=== PATIENT | female | born 1985 | race African-American/Black ===

== ENCOUNTER 2017-04-23 12:44 | Emergency (ER) | payer OTHER ==
[~2017-04-23] VITALS: Ht 172.7 cm; Wt 83.5 kg
[2017-04-23 12:47] VITALS: Ht 172.7 cm; Wt 83.5 kg
[2017-04-23] MEDS ORDERED: SOD CHLORIDE 0.9% 1,000 ML IV STA (13:17)
[2017-04-23] MEDS ORDERED: METOCLOPRAMIDE 10 MG INJ IV ONE (13:30)
--- NOTE | 2017-04-23 13:38 | ERA ---
ER Documentation Chief Complaint Date/Time DATE: 04/23/17 TIME: 13:36 Chief Complaint sent by OB for vaginal bleeding, pelvic pain and N/V HPI 31-year-old female 18 weeks who was sent here by [facility]. Patient is experiencing lower abdominal pain 2 days, decrease in quickening 4 days , hyperemesis gravidarum 15 weeks, and decreased weight. Patient has been taking Zofran without relief of symptoms. Patient denies any previous medical conditions or medications outside of vitamins and Zofran. Denies bleeding, fever, dysuria, diarrhea, vaginal discharge, foul odor, or identifiable patterns of symptoms. No other complaints and describes no other associated manifestations. ROS All systems reviewed and are negative except as per history of present illness. Medications Home Meds Active Scripts Nitrofurantoin Monohyd Macrocr* (Macrobid*) 100 Mg Capsr, 100 MG PO HS for 7 Days, CAP Prov:SHERIE WASHINGTON PA-C 04/23/17 Allergies Allergies: Coded Allergies: No Known Allergy (Unverified , 04/23/17) PMhx/Soc History of Surgery: No Anesthesia Reaction: No Hx Neurological Disorder: No Hx Respiratory Disorders: No Hx Cardiac Disorders: No Hx Psychiatric Problems: No Hx Miscellaneous Medical Probl: No Hx Alcohol Use: No Hx Substance Use: No Hx Tobacco Use: No Smoking Status: Former smoker Physical Exam Vitals Vital Signs Date Time Temp Pulse Resp B/P Pulse Ox O2 Delivery O2 Flow Rate FiO2 04/23/17 12:47 98.5 80 18 116/70 99 Physical Exam Const: [] Head: Atraumatic Eyes: Normal Conjunctiva ENT: Normal External Ears, Nose and Mouth. Neck: Full range of motion..~ No meningismus. Resp: Clear to auscultation bilaterally Cardio: Regular rate and rhythm, no murmurs Abd: Soft, non tender, non distended. Normal bowel sounds Skin: No petechiae or rashes Back: No midline or flank tenderness Ext: No cyanosis, or edema Neur: Awake and alert Psych: Normal Mood and Affect Result Diagram: 04/23/17 1335 Results 24 hrs Laboratory Tests Test 04/23/17 13:35 White Blood Count 9.410^3/ul Red Blood Count 3.7910^6/ul Hemoglobin 11.5g/dl Hematocrit 34.2% Mean Corpuscular Volume 90.2fl Mean Corpuscular Hemoglobin 30.3pg Mean Corpuscular Hemoglobin Concent 33.6g/dl Red Cell Distribution Width 12.4% Platelet Count 73843^3/UL Mean Platelet Volume 11.1fl Neutrophils % 66.9% Lymphocytes % 23.8% Monocytes % 6.9% Eosinophils % 1.7% Basophils % 0.3% Nucleated Red Blood Cells % 0.0/100WBC Neutrophils # 6.310^3/ul Lymphocytes # 2.210^3/ul Monocytes # 0.710^3/ul Eosinophils # 0.210^3/ul Basophils # 0.010^3/ul Nucleated Red Blood Cells # 0.010^3/ul Urine Color YELLOW Urine Clarity SLIGHTLY CLOUDY Urine pH 7.0 Urine Specific [place] 1.018 Urine Ketones NEGATIVEmg/dL Urine Nitrite NEGATIVEmg/dL Urine Bilirubin NEGATIVEmg/dL Urine Urobilinogen 1+mg/dL Urine Leukocyte Esterase 2+Jairo/ul Urine Microscopic RBC 1/HPF Urine Microscopic WBC 2/HPF Urine Squamous Epithelial Cells FEW/HPF Urine Bacteria FEW/HPF Urine Hemoglobin NEGATIVEmg/dL Urine Glucose NEGATIVEmg/dL Urine Total Protein NEGATIVEmg/dl Beta HCG, Quantitative 37092.0mIU/ml Current Medications Medications (Trade) Dose Ordered Sig/Jeanie Route PRN Reason Start Time Stop Time Status Last Admin Dose Admin Sodium Chloride (NS) 1,000 ml @ 1,000 mls/hr Q1H STAT IV 04/23/17 13:17 04/23/17 14:16 DC 04/23/17 13:40 Metoclopramide HCl (Reglan) 5 mg ONCE ONCE IV 04/23/17 13:30 04/23/17 13:31 DC 04/23/17 13:41 Procedures/MDM 31-year-old female 18 weeks with a chief complaint of lower abdominal pain. No bleeding. Ultrasound obtained read by the radiologist given the following impression: Single viable intrauterine gestation of approximately 18 weeks, 4 days . The estimated date of delivery is 09/20/2017 . Dating by ultrasound is within 1 day of dating by LMP. Posterior placenta with a complete placenta previa. CBC, BMP, and hCG were all within normal limits. Urinalysis showed 2+ leukocyte esterase, and results were most consistent with urinary tract infection. At this time, I have little suspicion for complete , ectopic , infection outside of urinary tract, pyelonephritis, blood vessel rupture, or PPROM. The current most likely diagnosis is lower urinary tract infection. However, at this time I am unable to rule out demise, or complete/missed . I have spoke with the patient regarding their condition and future management. They have verbally responded that they understand their status and treatment plan. Patient will be treated with outpatient Macrobid. The patient s vitals are stable, and their current condition is appropriate for discharge. The patient will be given discharge instructions with return precautions. Results of today's visit have been given to patient. Discharge medications: Macrobid Departure Diagnosis: Primary Impression: Pelvic pain during Additional Impressions: Placenta previa Qualified Code: O44.02 - Placenta previa, second trimester Urinary tract infection during Qualified Code: O23.42 - Urinary tract infection during , second trimester Condition: Stable Additional Instructions: Follow-up with [facility] in the next 1-3 days. Return to emergency department if symptoms change or worsen. Take medications as discussed. SHERIE WASHINGTON PA-C Apr 23, 2017 13:38
[2017-04-23 13:51] LABS: ADD UMIC YES; BASOPHILS % 0.3 % (0.0-2.0); EOSINOPHILS # 0.2 10^3/ul (0.0-0.5); EOSINOPHILS % 1.7 % (0.0-7.0); HEMATOCRIT 34.2 % (37.0-47.0); HEMOGLOBIN 11.5 g/dl (12.0-16.0); LYMPHOCYTES # 2.2 10^3/ul (0.8-2.9); LYMPHOCYTES % 23.8 % (15.0-51.0); MEAN CORPUSCULAR HEMOGLOBIN 30.3 pg (29.0-33.0); MEAN CORPUSCULAR HGB CONC 33.6 g/dl (32.0-37.0); MEAN CORPUSCULAR VOLUME 90.2 fl (82.0-101.0); MEAN PLATELET VOLUME 11.1 fl (7.4-10.4); MONOCYTE # 0.7 10^3/ul (0.3-0.9); MONOCYTES % 6.9 % (0.0-11.0); NEUTROPHIL # 6.3 10^3/ul (1.6-7.5); NEUTROPHILS % 66.9 % (39.0-77.0); PLATELET COUNT 180 10^3/UL (140-415); RED BLOOD COUNT 3.79 10^6/ul (4.20-5.40); RED CELL DISTRIBUTION WIDTH 12.4 % (11.5-14.5); UR ASCORBIC ACID NEGATIVE (NEGATIVE); UR BACTERIA FEW /HPF (NONE SEEN); UR BILIRUBIN (Dip) NEGATIVE (NEGATIVE); UR BLOOD (Dip) NEGATIVE (NEGATIVE); UR CLARITY SLIGHTLY CLOUDY (CLEAR); UR COLOR YELLOW (YELLOW); UR GLUCOSE (Dip) NEGATIVE (NEGATIVE); UR KETONES (Dip) NEGATIVE (NEGATIVE); UR LEUKOCYTE ESTERASE (Dip) 2+ Leu/ul (NEGATIVE); UR NITRITE (Dip) NEGATIVE (NEGATIVE); UR RBC 1 /HPF (0-5); UR SPECIFIC GRAVITY (Dip) 1.018 (1.003-1.030); UR SQUAMOUS EPITHELIAL CELL FEW /HPF (FEW); UR TOTAL PROTEIN (Dip) NEGATIVE (NEGATIVE); UR UROBILINOGEN (Dip) 1+ mg/dL (NEGATIVE); WHITE BLOOD COUNT 9.4 10^3/ul (4.8-10.8)
--- NOTE | 2017-04-23 14:09 | RADRPT ---
PROCEDURE: Obstetrical ultrasound CLINICAL INDICATION: Pain TECHNIQUE: Multiple sonographic images of the pelvis were obtained. The images were reviewed on a PACS workstation. COMPARISON: None FINDINGS: The cervix is closed with a length of 3.6 cm. There is a single viable intrauterine gestation. Cardiac activity is present with before beats per minute. There is a variable presentation. The placenta is posterior and there is a complete placenta previa. There is no evidence for an abrup tion. There is a normal amount of amniotic fluid with the maximum vertical pocket of 4.9 cm. Measurements were made in order to determine age. The results are as follows (cm): BPD =3.97 HC =15.18 AC =13.52 FL =2.90 Estimated gestational age by ultrasound of approximately 18 weeks, 4 days. The estimated date of delivery by ultrasound is 09/20/2017. Estimated gestational age by LMP of approximately 18 weeks, 3 days. The estimated date of delivery by LMP is 09/21/2017. EFW = 261 grams (71st percentile) Bilateral ovaries are not visualized. There are no abnormal adnexal masses. IMPRESSION: Single viable intrauterine gestation of approximately 18 weeks, 4 days . The estimated date of delivery is 09/20/2017 . Dating by ultrasound is within 1 day of dating by LMP. Posterior placenta with a complete placenta previa. RPTAT: EE Physician Vince Date Time Electronically viewed and signed by Physician Vince on 04/23/2017 14:09 /
[2017-04-23] MEDS ORDERED: NITR-58 PO (15:32)
== END 2017-04-23 15:48 | disposition home or self-care (01) ==
LOC: FTE 12:44
DX: O26.892 Other specified pregnancy related conditions, second trimester (principal); R10.2 Pelvic and perineal pain; O44.02 Complete placenta previa NOS or without hemorrhage, second trimester; O23.42 Unspecified infection of urinary tract in pregnancy, second trimester; Z3A.18 18 weeks gestation of pregnancy; Z87.891 Personal history of nicotine dependence
CPT/HCPCS: 36415; 76805; 81001; 84702; 85025; 86900; 86901; 96374; J2765; J7030; Z7502

== ENCOUNTER 2017-05-21 11:38 | Outpatient (CLI) | payer OTHER ==
[~2017-05-21] VITALS: Ht 172.7 cm; Wt 84.5 kg
[~2017-05-21 11:38] MED LIST: NITR-58 PO
[2017-05-21 13:45] LABS: BASOPHILS % 0.2 % (0.0-2.0); EOSINOPHILS # 0.1 10^3/ul (0.0-0.5); EOSINOPHILS % 1.2 % (0.0-7.0); HEMATOCRIT 32.8 % (37.0-47.0); HEMOGLOBIN 11.2 g/dl (12.0-16.0); LYMPHOCYTES # 2.2 10^3/ul (0.8-2.9); LYMPHOCYTES % 21.3 % (15.0-51.0); MEAN CORPUSCULAR HEMOGLOBIN 31.1 pg (29.0-33.0); MEAN CORPUSCULAR HGB CONC 34.1 g/dl (32.0-37.0); MEAN CORPUSCULAR VOLUME 91.1 fl (82.0-101.0); MEAN PLATELET VOLUME 11.4 fl (7.4-10.4); MONOCYTE # 0.7 10^3/ul (0.3-0.9); MONOCYTES % 6.7 % (0.0-11.0); NEUTROPHILS % 69.9 % (39.0-77.0); PLATELET COUNT 175 10^3/UL (140-415); RED CELL DISTRIBUTION WIDTH 12.3 % (11.5-14.5); WHITE BLOOD COUNT 10.2 10^3/ul (4.8-10.8)
--- NOTE | 2017-05-21 13:58 | RADRPT ---
PROCEDURE: US OB AND ULTRASOUND CERVIX. CLINICAL INDICATION: Size and dates , labor TECHNIQUE: Multiple sonographic images of the pelvis and gravid uterus were obtained. The images were reviewed on a PACS workstation. Transvaginal images of the cervix were also obtained. COMPARISON: US 04/23/2017 FINDINGS: The cervix has a length of 4.2 cm. There is a single viable intrauterine gestation. Cardiac activity is present with 148 beats per min [place]. There is a vertex presentation. The placenta is posterior. There is no evidence for an abruption or placenta previa. Measurements were made in order to determine age. The results are as follows: BPD =5.4 cm HC =19.9 cm AC =17.9 cm FL =4.0 cm Estimated gestational age of approximately 22 weeks and 4 days based on ultrasound measurements. Clinical age: 22 weeks and 0 days. The estimated date of delivery is 09/20/17, based on ultrasound measurements. The EFW = 532 g, 81.6%, based on LMP age. RPTAT: AA IMPRESSION: Single viable intrauterine gestation of approximately 22 weeks and 4 days based on ultrasound measu rements. .Jorge Luis Spears MD, Date Time Electronically viewed and signed by .Jorge Luis Spears MD, on 05/21/2017 13:58 .S/
[2017-05-21 14:59] LABS: ADD UMIC NO; UR ASCORBIC ACID NEGATIVE (NEGATIVE); UR BILIRUBIN (Dip) NEGATIVE (NEGATIVE); UR BLOOD (Dip) NEGATIVE (NEGATIVE); UR CLARITY CLEAR (CLEAR); UR COLOR STRAW (YELLOW); UR GLUCOSE (Dip) NEGATIVE (NEGATIVE); UR KETONES (Dip) NEGATIVE (NEGATIVE); UR LEUKOCYTE ESTERASE (Dip) NEGATIVE Leu/ul (NEGATIVE); UR NITRITE (Dip) NEGATIVE (NEGATIVE); UR SPECIFIC GRAVITY (Dip) 1.005 (1.003-1.030); UR TOTAL PROTEIN (Dip) NEGATIVE (NEGATIVE); UR UROBILINOGEN (Dip) NEGATIVE (NEGATIVE)
--- NOTE | 2017-05-21 17:17 | CONS ---
Date/Time of Note Date/Time of Note DATE: 05/21/17 TIME: 17:11 Consultation Date/Type/Reason Admit Date/Time May 21, 2017 OB triage consult Reason for Consultation This patient is a 31 years old 3 para 1 1 living 1 with extubation date of confinement of September for 2017 which makes her 22 weeks she came in complaining of slight abdominal pain for 5 days to rule out any possibility of labor her previous delivery was a normal spontaneous vaginal she also had 1 spontaneous Termination is a well-developed well-nourished lady Her general vital signs are basically normal with blood pressure 114/71 pulse rate. 80, respirations 17 and temperature 98.5,. On examination abdomen is soft heart tone is normal she does not have any evidence of contractions no tenderness. Hx of Present Illness Laboratory Tests Test 05/21/17 13:00 05/21/17 13:15 Urine Color STRAW Urine Clarity CLEAR Urine pH 7.0 Urine Specific [place] 1.005 Urine Ketones NEGATIVEmg/dL Urine Nitrite NEGATIVEmg/dL Urine Bilirubin NEGATIVEmg/dL Urine Urobilinogen NEGATIVEmg/dL Urine Leukocyte Esterase NEGATIVELeu/ul Urine Hemoglobin NEGATIVEmg/dL Urine Glucose NEGATIVEmg/dL Urine Total Protein NEGATIVEmg/dl White Blood Count 10.210^3/ul Red Blood Count 3.6010^6/ul Hemoglobin 11.2g/dl Hematocrit 32.8% Mean Corpuscular Volume 91.1fl Mean Corpuscular Hemoglobin 31.1pg Mean Corpuscular Hemoglobin Concent 34.1g/dl Red Cell Distribution Width 12.3% Platelet Count 82425^3/UL Mean Platelet Volume 11.4fl Neutrophils % 69.9% Lymphocytes % 21.3% Monocytes % 6.7% Eosinophils % 1.2% Basophils % 0.2% Nucleated Red Blood Cells % 0.0/100WBC Neutrophils # (Manual) 7.110^3/ul Lymphocytes # 2.210^3/ul Monocytes # 0.710^3/ul Eosinophils # 0.110^3/ul Basophils # 0.010^3/ul Nucleated Red Blood Cells # 0.010^3/ul Constitutional: No chills, No diaphoresis, No disoriented, No febrile, No improved, No no complaints, No other, No poor po, No requiring IVF, No requiring O2 Eyes: No discharge, No no complaints, No other, No pain, No redness, No visual change ENT: No bleeding, No congestion, No discharge, No dysphagia, No no complaints, No other, No pain, No sore throat Respiratory: No cough, No no complaints, No other, No pain, No pleuritic pain, No shortness of breath, No sputum, No wheezing Cardiovascular: No chest pain, No edema, No lightheadedness, No no complaints, No orthopenea, No other, No palpitations, No paroxysmal nocturnal dyspnea Gastrointestinal: other (Slight abdominal pain no CVA tenderness), No blood, No constipation, No decreased appetite, No diarrhea, No flatus, No nausea, No no complaints, No pain, No passing stool, No vomiting Genitourinary: other (Pelvic exam was not performed because she did not have any sign of labor no contraction), No bleeding, No discharge, No dysuria, No flank pain, No hematuria, No no complaints Musculoskeletal: No back pain, No bone/joint pain, No neck pain, No no complaints, No other, No restricted range of motion, No swelling Skin: No bruising, No erythema, No laceration, No no complaints, No other, No pruritis, No rash, No skin lesions Neurologic: No confusion, No dizziness, No focal-weakness, No headache, No no complaints, No other, No seizure, No syncope Endocrine: No dry skin, No no complaints, No other, No polydypsia, No polyuria , No temp intolerance Psychological: No anxiety, No confusion, No depression, No nl mood/affect, No no complaints, No other, No suicidal Additional Comments Operatory studies she does have mild degree of anemia with hemoglobin of 11.2 hematocrit of 32.8 however her platelet count and other report CBC was normal On ultrasound study the report is a single viable intrauterine gestation with cardiac activity 148 bpm in vertex presentation placenta was posterior no evidence of previa estimated gestational age was 222 weeks and 4 days and there is 30 days estimated weight was 532 g which places her at 1.6 percentile Disposition. With these finding patient was reassured and was advised to go to her manager cardiology and have her regular care. Return to hospital in serious Exam/Review of Systems Results Result Diagram: 05/21/17 1315 Results 24 hrs Laboratory Tests Test 05/21/17 13:00 05/21/17 13:15 Urine Color STRAW Urine Clarity CLEAR Urine pH 7.0 Urine Specific [place] 1.005 Urine Ketones NEGATIVE Urine Nitrite NEGATIVE Urine Bilirubin NEGATIVE Urine Urobilinogen NEGATIVE Urine Leukocyte Esterase NEGATIVE Urine Hemoglobin NEGATIVE Urine Glucose NEGATIVE Urine Total Protein NEGATIVE White Blood Count 10.2 Red Blood Count 3.60 L Hemoglobin 11.2 L Hematocrit 32.8 L Mean Corpuscular Volume 91.1 Mean Corpuscular Hemoglobin 31.1 Mean Corpuscular Hemoglobin Concent 34.1 Red Cell Distribution Width 12.3 Platelet Count 175 Mean Platelet Volume 11.4 H Neutrophils % 69.9 Lymphocytes % 21.3 Monocytes % 6.7 Eosinophils % 1.2 Basophils % 0.2 Nucleated Red Blood Cells % 0.0 Neutrophils # (Manual) 7.1 Lymphocytes # 2.2 Monocytes # 0.7 Eosinophils # 0.1 Basophils # 0.0 Nucleated Red Blood Cells # 0.0 TAMAR KLEIN MD May 21, 2017 17:17
--- NOTE | 2017-05-21 19:02 | TRIAGE ---
OB Triage Datetime Report Generated by CPN: 05/21/2017 19:01 Datetime: 05/21/2017 17:00 Stage of : OB Triage Labor Evaluation Frequency: 0 Monitor Mode: External Resting Tone [place]: Relaxed Monitor Mode: External US Datetime: 05/21/2017 16:00 Stage of : OB Triage Labor Evaluation Frequency: 0 Monitor Mode: External Resting Tone [place]: Relaxed Monitor Mode: External US Datetime: 05/21/2017 15:14 Temperature Route: Oral Datetime: 05/21/2017 15:00 Stage of : OB Triage Labor Evaluation Frequency: 0 Monitor Mode: External Resting Tone [place]: Relaxed Monitor Mode: External US Datetime: 05/21/2017 14:00 Stage of : OB Triage Labor Evaluation Frequency: 0 Monitor Mode: External Resting Tone [place]: Relaxed Heart Rate FHR Baseline Rate: 150 Monitor Mode: External US Datetime: 05/21/2017 13:08 Temperature Route: Oral Datetime: 05/21/2017 13:00 Stage of : OB Triage Labor Evaluation Frequency: 0 Monitor Mode: External Resting Tone [place]: Relaxed Heart Rate FHR Baseline Rate: 150 Monitor Mode: External US Datetime: 05/21/2017 12:32 Assessment Type: Triage Maternal Assessment Level of Consciousness: Fully Conscious DTR's/Clonus: DTRs 2+ Headache: Denies Blurred Vision: No Respiratory Effort: Unlabored Breath Sounds, Left: Clear and Equal Breath Sounds, Right: Clear and Equal Nausea/Vomiting: Denies RUQ Epigastric Pain: Denies Lower Extremities Edema: None Degree: None Upper Extremities Edema: None Degree: None Facial Edema: None Fall Risk Assessment History of Falling: (0) No Secondary Diagnosis: (0) No Ambulatory Aid: (0) Bedrest/Nurse Assist IV Therapy: (0) No Gait: (0) Normal/Bedrest/Immobile Mental Status: (0) Oriented to Own Ability Fall Score: 0 Fall Risk Score Definition: No Risk: No action required Datetime: 05/21/2017 12:28 Time of Arrival: 05/21/2017 12:00 EGA: 22.0 Arrived By: Ambulatory Arrived From: Office Chief Complaint: THE PATIENT WAS SENT FROM THE CLINIC TO R/O PTL. HISTORY OF LOWER ABDOMINAL PAIN FOR 5 Movement: Present Contractions: Occasional Rupture of Membranes: Denies Vaginal Bleeding: None Vaginal Discharge: Denies Recent Sexual Intercouse: Yes Abdominal Trauma: Not Applicable Patient Complaints: Cramping Time Provider Notified: 05/21/2017 13:05 Provider Notified: Stephani Initial Plan: EFM; 1305 -Dr. York was notified and oredered ua, cbc, cervical length, efv. if e verything OK call the laborist to d/c patient home. Datetime: 05/21/2017 12:03 Monitor Mode: External Monitor Mode: External US
== END 2017-05-21 17:35 | disposition home or self-care (01) ==
LOC: OBT 11:38 → L-D 11:38 → OBG 11:43 → OBT 17:35
PROVIDERS: ATTEND Obstetrics & Gynecology
DX: O26.892 Other specified pregnancy related conditions, second trimester (principal); Z3A.22 22 weeks gestation of pregnancy; R10.9 Unspecified abdominal pain
CPT/HCPCS: 36415; 76815; 76817; 81003; 85025; G0463

== ENCOUNTER 2017-08-30 10:32 | Outpatient (CLI) | payer OTHER ==
--- NOTE | 2017-08-30 11:11 | PN ---
Triage Information Date/Time Reason for visit: Uterine contractions Weeks of Gestation 34+ /Para 3/2 Diabetes: none Hypertention: none Objective Heart Rate: 140's Contractions: >10 Minutes Apart Disposition: Discharge Assessment/Plan No cervical change Labs reviewed Discharged with precautions MÓNICA WHITTINGTON M.D. Aug 30, 2017 11:11
--- NOTE | 2017-08-30 11:15 | PN ---
Triage Information Date/Time Reason for visit: Uterine contractions Weeks of Gestation 36+ /Para 2/1 Diabetes: none Hypertention: none Objective Heart Rate: 140's Contractions: >10 Minutes Apart Disposition: Discharge Assessment/Plan No cervical change If BPP 8/8 she can be discharged precautions discussed MÓNICA WHITTINGTON M.D. Aug 30, 2017 11:14
--- NOTE | 2017-08-30 13:17 | RADRPT ---
PROCEDURE: US biophysical profile. CLINICAL INDICATION: Pelvic pain TECHNIQUE: Multiple sonographic images of the uterus were obtained. The images were revi ewed on a PACS workstation. COMPARISON: No prior studies are available for comparison. FINDINGS: There is a single live intrauterine gestation. heart rate is 140 beats per minute. The position is cephalic. The placenta is the maternal right grade 1/2. The WES is 15 point a cm. (Normal = 5-20 cm.) Breathing Movement: 2 Gross Body Movement: 2 Tone: 2 Qualitative Amniotic Fluid Volume: 2 TOTAL: 8 IMPRESSION: 1. The biophysical score is 8/8. 2. The WES = 15.8 cm RPTAT: UU .Geovany Pagan MD, Date Time Electronically viewed and signed by .Geovany Pagan MD, on 08/30/2017 13:17 .K/
--- NOTE | 2017-08-30 13:30 | TRIAGE ---
OB Triage Datetime Report Generated by CPN: 08/30/2017 13:29 Datetime: 08/30/2017 13:16 Stage of : OB Triage Maternal Assessment Level of Consciousness: Fully Conscious DTR's/Clonus: DTRs 1+ Headache: Denies Breath Sounds, Left: Clear and Equal Breath Sounds, Right: Clear and Equal Nausea/Vomiting: Denies RUQ Epigastric Pain: Denies Monitor Mode: External Pattern: Normal: <= 5 Contractions in 10 Minutes Resting Tone [place]: Relaxed Heart Rate FHR Baseline Rate: 125 Monitor Mode: External US Variability: Moderate 6-25 bpm Accelerations: 15X15 Decelerations: None Category: Category I Pain Assessment Pain Scale: 5 Pain Presence: Constant Pain Type: Pressure Pain Location: Other Pain Goal: 3 Vaginal Exam Membrane Status: Intact Datetime: 08/30/2017 12:30 Stage of : OB Triage Maternal Assessment Level of Consciousness: Fully Conscious DTR's/Clonus: DTRs 1+ Headache: Denies Breath Sounds, Left: Clear and Equal Breath Sounds, Right: Clear and Equal Nausea/Vomiting: Denies RUQ Epigastric Pain: Denies Monitor Mode: External Pattern: Normal: <= 5 Contractions in 10 Minutes Resting Tone [place]: Relaxed Heart Rate FHR Baseline Rate: 125 Monitor Mode: External US Variability: Moderate 6-25 bpm Accelerations: 15X15 Decelerations: None Category: Category I Pain Assessment Pain Scale: 5 Pain Presence: Constant Pain Type: Pressure Pain Location: Other Pain Goal: 3 Vaginal Exam Membrane Status: Intact Datetime: 08/30/2017 12:00 Stage of : OB Triage Maternal Assessment Level of Consciousness: Fully Conscious DTR's/Clonus: DTRs 1+ Headache: Denies Breath Sounds, Left: Clear and Equal Breath Sounds, Right: Clear and Equal Nausea/Vomiting: Denies RUQ Epigastric Pain: Denies Labor Evaluation Frequency: 1 Monitor Mode: External Duration (sec)2399: 60 Quality: Mild Pattern: Normal: <= 5 Contractions in 10 Minutes Resting Tone [place]: Relaxed Heart Rate FHR Baseline Rate: 125 Monitor Mode: External US Variability: Moderate 6-25 bpm Accelerations: 15X15 Decelerations: None Category: Category I Pain Presence: Constant Pain Type: Pressure Pain Location: Other Vaginal Exam Membrane Status: Intact Datetime: 08/30/2017 11:00 Maternal Assessment Level of Consciousness: Fully Conscious DTR's/Clonus: DTRs 1+ Headache: Denies Blurred Vision: No Respiratory Effort: Unlabored Breath Sounds, Left: Clear and Equal Breath Sounds, Right: Clear and Equal Nausea/Vomiting: Denies RUQ Epigastric Pain: Denies Facial Edema: None Labor Evaluation Frequency: 1 Monitor Mode: External Duration (sec)2399: 60 Quality: Mild Pattern: Normal: <= 5 Contractions in 10 Minutes Resting Tone [place]: Relaxed Heart Rate FHR Baseline Rate: 130 Monitor Mode: External US Variability: Moderate 6-25 bpm Accelerations: 15X15 Decelerations: None Category: Category I Pain Presence: Constant Pain Type: Pressure Pain Location: Other Pain Assessment Comments: LOWER ABDOMEN/PELVIC AREA Vaginal Exam Membrane Status: Intact Datetime: 08/30/2017 10:28 Time of Arrival: 08/30/2017 10:28 EGA: 36.3 Arrived By: Ambulatory Arrived From: Home Chief Complaint: PT CAME IN C/O PELVIC AND LOWER ABD PAIN Movement: Present Contractions: Denies/Absent Rupture of Membranes: Denies Vaginal Discharge: Denies Recent Sexual Intercouse: Denies Abdominal Trauma: Not Applicable Additional Patient Complaints: NONE Time Provider Notified: 08/30/2017 11:00 Provider Notified: GHAYOORI Initial Plan: NST , BPP, VE Datetime: 05/21/2017 12:32 Fall Risk Assessment Fall Score: 0 Fall Risk Score Definition: No Risk: No action required Datetime: 05/21/2017 12:28 EGA: 22.0
== END 2017-08-30 13:30 | disposition home or self-care (01) ==
LOC: OBT 10:32 → L-D 10:33 → OBT 13:30
PROVIDERS: ATTEND Obstetrics & Gynecology
DX: O62.9 Abnormality of forces of labor, unspecified (principal); Z3A.34 34 weeks gestation of pregnancy
CPT/HCPCS: 76818; Z7500; G0463

== ENCOUNTER 2017-09-16 11:25 | Inpatient (IN) | END 2017-09-19 15:10 | disposition home or self-care (01) | DRG 775 ==